=== PATIENT | male | born 1980 | race African-American/Black ===

== ENCOUNTER 2022-05-07 19:06 | Emergency (ER) | payer SELFPAY ==
[2022-05-07] MEDS ORDERED: Cyclobenzaprine 10 MG Tab PO ONE (19:07)
[2022-05-07] MEDS ORDERED: methylPREDNISolone Sodium Succinate 125 MG/2 ML SDV IM ONE (20:18)
[2022-05-07] MEDS ORDERED: Cyclobenzaprine 10 MG Tab ONE (20:39)
== END 2022-05-07 20:42 | disposition home or self-care (01) ==
LOC: DL.ED 19:06
DX: M54.50 Low back pain, unspecified (principal); M25.562 Pain in left knee; F17.210 Nicotine dependence, cigarettes, uncomplicated; Z88.8 Allergy status to other drugs, medicaments and biological substances
CPT/HCPCS: 96372; 99283; A9270; J2930